=== PATIENT | male | born 1970 | race Caucasian/White ===

== ENCOUNTER 2021-10-16 09:02 | Day surgery (SDC) | payer OTHER ==
[~2021-10-16] VITALS: Ht 182.9 cm; Wt 94.8 kg
[2021-10-16 09:56] VITALS: BP 112/97; PULSE 57; TEMP 98.5
[2021-10-16 11:20] VITALS: BP 126/78; PULSE 58; TEMP 98.2
--- NOTE | 2021-10-16 12:10 | NUR ---
1120 Pt returns from endo procedure via cart and RN assist to [facility]. Pt ambulates from cart to recliner with RN assist. Monitors on and alarms set. Call light within reach. Report received from STEPHANIE Arrieta. Pt alert and oriented. Pt requests Coke and muffin. Pt denies any pain or nausea. 1130 Pt taking food and drink well. No complications noted. 1205 Discharge instructions given to pt and pt's . All questions answered to their satisfaction. Handed to pt are a thank you card and discharge information. 1210 Pt transferred out of the hospital via wheelchair and Arabella assist, to private vehicle driven by pt's .
[2021-10-16 12:15] VITALS: BP 113/87; PULSE 81
== END 2021-10-16 12:10 | disposition home or self-care (01) ==
LOC: SDCO 09:02
DX: Z12.11 Encounter for screening for malignant neoplasm of colon (principal)
CPT/HCPCS: J2704; J3010; J7030